=== PATIENT | male | born 1965 | race Two or more races ===

== ENCOUNTER 2025-04-09 08:37 | Outpatient (CLI) | payer MEDICAID, SELFPAY ==
[2025-04-08 15:10] LABS: Basophils % (Auto) 0 % (0-2.5); Eosinophils # (Auto) 0.2 Thou/mm3 (0.0-0.5); Eosinophils % (Auto) 3 % (0-10); Hematocrit 35.5 % (41.0-53.0); Hemoglobin 12.1 g/dL (13.5-16.0); Immature Granulocytes % (Auto) 0 % (0-0); Immature Granulocytes Auto 0.01 Thou/mm3 (0.00-0.00); Lymphocytes % (Auto) 27 % (10-50); Mean Corpuscular HGB Conc 34.1 g/dl (31.0-37.0); Mean Corpuscular Volume 94 fL (80-100); Monocytes # (Auto) 0.6 Thou/mm3 (0.0-0.8); Monocytes % (Auto) 9 % (0-12); Neutrophils # (Auto) 4.4 Thou/mm3 (1.8-7.7); Neutrophils % (Auto) 61 % (37-80); Nucleated Red Blood Cell % 0 /100 WBC (0); Platelet Count 199 Thou/mm3 (140-440); RDW Standard Deviation 40.9 fL (35.1-43.9); Red Blood Count 3.78 Miln/mm3 (4.50-5.90); White Blood Count 7.3 Thou/mm3 (3.8-10.6)
[2025-04-08 15:27] LABS: Blood Urea Nitrogen 20 mg/dL (9-23); eGFR > 60 See Note
[2025-04-08 15:30] LABS: Partial Thromboplastin Time 28.5 Seconds (22.0-36.0); Prothrombin Time 10.9 Seconds (9.0-12.2)
[2025-04-09] VITALS (13 sets, daily range): BP systolic 103–161; BP diastolic 61–87; PULSE 67–86; RESP 11–23; TEMP 36.6–36.8; O2SAT 90–100
--- NOTE | 2025-04-09 | XR_ITS ---
Examination: AP chest single view Technique one AP upright portable chest single view Date and time: April 09, 2025 1233 hours INDICATIONS: Post right lung biopsy FINDINGS: Pulmonary mass right upper lobe No pneumothorax post lung biopsy Normal heart size IMPRESSION: No pneumothorax post lung biopsy
--- NOTE | 2025-04-09 09:36 | XR_ITS ---
Examination: CT-guided percutaneous biopsy cavitary mass right upper lobe CT chest without intravenous contrast Date and time of procedure: April 09, 2025 1131 hours INDICATIONS: Cavitary mass right upper lobe on CT chest March 11, 2025 Informed consent provided. A timeout was completed verifying correct patient, procedure, site and positioning. Technique: Axial 3 mm sections were obtained for localization of the pulmonary mass right upper lobe Appropriate area is marked. The patient's site was prepped and draped in sterile fashion Maximal sterile barrier technique utilized, including hand hygiene Local anesthesia was obtained with 1% lidocaine. Low dose protocols were performed. One or more of the following dose reduction techniques were used; automated exposure control, adjustment of the mA and/or KV according to patient size, use of iterative reconstruction technique. 3 core biopsies obtained of the pulmonary mass right upper lobe, one core placed in culture medium for culture and sensitivity Patient appears in stable condition during this procedure. At completion of the procedure, the patient is in satisfactory condition. Estimated blood loss 3 cc Complete pathology report to follow. Impression: Status post CT-guided percutaneous biopsy cavitary mass right upper lobe
[2025-04-09] MEDS: SODIUM CHLORIDE 0.9% 500 ML 500 ML 20 ML IV (11:00)
[2025-04-09] MEDS: fentaNYL CIT INJ 50 mCg/ML AMP 2ML 75 MCG IVP (11:56)
--- NOTE | 2025-04-09 13:10 | XR_ITS ---
Shaft examination: AP chest single view Technique one AP semiupright portable chest single view Date and time: 07/10/2025 1339 hours INDICATIONS: Post lung biopsy FINDINGS: Pulmonary mass right upper lobe No pneumothorax post lung biopsy Normal heart size IMPRESSION: No pneumothorax post lung biopsy
[2025-04-09 13:30] LABS: Cult AFB Sendout- Not Sputum* See Sep Rpt
== END 2025-04-09 14:15 | disposition home or self-care (01) ==
PROVIDERS: Radiology Diagnostic Radiology; PCP Nurse Practitioner; Referring Provider Nurse Practitioner; Visit Provider Nurse Practitioner
DX: J84.10 Pulmonary fibrosis, unspecified (principal); J98.4 Other disorders of lung; Z01.812 Encounter for preprocedural laboratory examination
CPT/HCPCS: 32408; 36415; 77012; 82565; 84520; 85025; 85610; 85730; 87070; 87102; 87116; 87205; 87206; A4649; J3010; J7040